=== PATIENT | male | born 1950 | race Caucasian/White ===

== ENCOUNTER 2025-02-23 | Day surgery (SDC) | payer MEDICARE, SELFPAY ==
[2025-02-09 15:01] VITALS: BMI 28.8
[2025-02-23 07:07] VITALS: BP 163/69; PULSE 92; RESP 18; TEMP 36.8; O2SAT 96; BMI 29.5
[2025-02-23] MEDS: LACTATED RINGERS 1,000 ML 150 ML IV CONT (07:25)
--- NOTE | 2025-02-23 08:02 | WPDANESEPPF ---
Anes - Initial Pre Proc Eval Procedure: Operation Date: 02/23/25 08:30 Proposed Procedures p Screening Colonoscopy - Mike Cruz MD Date/Time: 02/23/25 08:02 Surgeon: Mike Cruz MD Pre Op Diagnosis: Screening/positive cologuard Patient Data Age: 74 Gender: M Height: 1.91 m Weight: 107 kg Last Vital Signs Temp 98.2 F 02/23/25 07:07 Pulse 92 02/23/25 07:07 Resp 18 02/23/25 07:07 BP 163/69 H 02/23/25 07:07 Pulse Ox 96 02/23/25 07:07 O2 Del Method Room Air 02/23/25 07:07 Allergies Allergy/AdvReac Type Severity Reaction Status Date / Time No Known Allergies Allergy Verified 02/23/25 07:14 Home Medications ?Medication ?Instructions ?Recorded ?Confirmed ?Type duloxetine 30 mg capsule,delayed 30 mg PO DAILY #30 caps 07/18/22 02/23/25 Rx release (Cymbalta) lisinopril 40 mg tablet 40 mg PO DAILY #90 tabs 10/05/24 02/23/25 Rx metoprolol tartrate 50 mg tablet 50 mg PO TID #270 tabs 10/05/24 02/23/25 Rx amlodipine 2.5 mg tablet See Rx Instructions .Route 11/18/24 02/23/25 Rx .COMPLEX #90 tabs sildenafil 100 mg tablet (Viagra) 100 mg PO DAILY PRN sexual 12/15/24 02/09/25 Rx activity #20 tabs alprazolam 0.5 mg tablet (Xanax) 0.5 mg PO BID PRN anxiety #60 tabs 02/02/25 02/09/25 Rx atorvastatin 10 mg tablet See Rx Instructions .Route 02/02/25 02/23/25 Rx .COMPLEX #90 tabs Patient hx anesthesia problems: none Family hx anesthesia problems: none Results Review: All pre-operative results and documents have been reviewed as part of the pre-operative evaluation. [facility] Past Medical History Medical History Erectile dysfunction Hyperlipidemia Anxiety Hypertension Social History Social History Smoking packs per day: 1 Smoking cigarettes per day: 20.0 Years smoked: 10 Smoking pack-years: 10.00 Smoking status: Former smoker Smoking end date: 05/20/06 Alcohol intake: never Alcohol use details: Drinks beer socially Substance use: never Substance use type: does not use Lack of Transportation: No Lack of Food: Never True Current Housing: I Have Housing Concerned About Future Housing: No Difficulty Paying Gas/Electric Bills: No Difficulty Paying for Meds: No Currently Unemployed: No Education: High School Diploma/GED Difficulty w/ Childcare or Family Care: No Living arrangements: with family Spiritual care concerns: No Anes - Eval Final PreProcedure Day of Procedure 02/23/25 08:02 Patient weight: overweight Lungs: normal air movement Airway: Mallampati scale class II and special considerations (Upper partial, removed, many missing teeth. ) Neurological: alert and oriented Last oral intake: >/= 8 hours ASA classification: III Emergent: no Anesthetic plan: proceed Anesthesia type and monitoring: general GIVS and standard monitoring Results Review: All pre-operative results and documents have been reviewed as part of the pre-operative evaluation. 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 Informed Consent: The patient's anesthetic plan and its attendant risks and benefits were discussed with the patient/family/POA. Questions were solicited and answers provided to the satisfaction of the patient/family/POA.
--- NOTE | 2025-02-23 08:38 | P.HP_ITS ---
H&P: HPI History of Present Illness Date/Time: 02/23/25 08:38 Chief Complaint: Positive Cologuard Narrative: This is the patient's first colonoscopy. he was recently found to be Cologuard positive. There are no GI symptoms and there is no family history of colorectal cancer. Review of Systems Review of Systems: All systems reviewed & are unremarkable except as noted in HPI and below PMFSH Past Medical History Medical History Erectile dysfunction Hyperlipidemia Anxiety Hypertension Social History Social History Smoking packs per day: 1 Smoking cigarettes per day: 20.0 Years smoked: 10 Smoking pack-years: 10.00 Smoking status: Former smoker Smoking end date: 05/20/06 Alcohol intake: never Alcohol use details: Drinks beer socially Substance use: never Substance use type: does not use Lack of Transportation: No Lack of Food: Never True Current Housing: I Have Housing Concerned About Future Housing: No Difficulty Paying Gas/Electric Bills: No Difficulty Paying for Meds: No Currently Unemployed: No Education: High School Diploma/GED Difficulty w/ Childcare or Family Care: No Living arrangements: with family Spiritual care concerns: No Meds Home Medications and Allergies Home Medications ?Medication ?Instructions ?Recorded ?Confirmed ?Type duloxetine 30 mg capsule,delayed 30 mg PO DAILY #30 ca ps 07/18/22 02/23/25 Rx release (Cymbalta) lisinopril 40 mg tablet 40 mg PO DAILY #90 tabs 09/1702/23/25 Rx metoprolol tartrate 50 mg tablet 50 mg PO TID #270 tab s 10/05/24 02/23/25 Rx amlodipine 2.5 mg tablet See Rx Instructions .Route 0 11/18/24 02/23/25 Rx .COMPLEX #90 tabs sildenafil 100 mg tablet (Viagra) 100 mg PO DAILY PRN sexual 12/15/24 02/09/25 Rx activity #20 tabs alprazolam 0.5 mg tablet (Xanax) 0.5 mg PO BID PRN anx iety #60 tabs 02/02/25 02/09/25 Rx atorvastatin 10 mg tablet See Rx Instructions .Route 0 02/02/25 02/23/25 Rx .COMPLEX #90 tabs Allergies Allergy/AdvReac Type Severity Reaction Status Date / Time No Known Allergies Allergy Verified 02/23/25 07:14 Vital Signs Vital Signs - 24 hr 02/23/25 07:07 Temperature 98.2 F Pulse Rate 92 Respiratory Rate 18 Blood Pressure 163/69 H Pulse Oximetry 96 Oxygen Delivery Room Air Exam Const: General: cooperative and healthy appearing Resp: Effort & Inspection: normal respiratory effort and able to speak in complete sentences Auscultation: clear to auscultation bilaterally Cardio: Rate: regular rate Rhythm: regular rhythm GI: Inspection: normal to inspection GI Palp: No No hepatosplenomegaly present Auscultation: normal bowel sounds Rectal Exam: deferred Skin: General skin exam: normal color Psych: Appearance: grossly normal Mental Status: mental status grossly normal Assessment and Plan Assessment and plan (1) Positive colorectal cancer screening using Cologuard test: Code(s): R19.5 - Other fecal abnormalities Status: Acute Assessment and Plan: The patient is deemed a good candidate for the procedure. Consent signed. Will proceed.
[2025-02-23] MEDS: SIMETHICONE ORAL SUSPENSION 20 MG/0.3 ML 30 ML BOTTLE 0.6 ML IRRIGATION (08:59)
--- NOTE | 2025-02-23 09:05 | S_PTH ---
PATIENT: Darwin Love LOC: [facility]#:[id number] AGE/SX: 74/M ROOM: RE02/23/[address]: Mike Cruz MD : 1950 BED: DIS: 02/23/2025 SPEC #: [id number] RECD: 02/23/25 09:15 STATUS: DORIE REQ #: [id number] ROMINA: 02/23/25 09:[address]: Mike Cruz DEPT: [facility] Surgical RECD BY: Angelita Pablo ENTERED: 02/23/25 09:15 SP TYPE: Surgical OTHR DR: Jeff Limon MD Tissues: A - Colon Polypectomy Procedures: Hematoxylin and Eosin Stain Gross and Microscopic Level 4
[2025-02-23 09:08] VITALS: BP 93/55; PULSE 83; RESP 26; O2SAT 96
[2025-02-23 09:18] VITALS: BP 147/56; PULSE 63; RESP 22; O2SAT 98
[2025-02-23 09:28] VITALS: BP 149/85; PULSE 76; RESP 25; O2SAT 98
== END 2025-02-23 09:33 | disposition home or self-care (01) ==
PROVIDERS: PCP Family Medicine; Referring Provider Family Medicine; Visit Provider Internal Medicine Gastroenterology
PROC: 0DJD8ZZ Inspection of Lower Intestinal Tract, Via Natural or Artificial Opening Endoscopic (ICD-10-PCS; CPT 45378; principal; 2025-02-23 08:30)
DX: R19.5 Other fecal abnormalities (principal); D12.0 Benign neoplasm of cecum; K57.30 Diverticulosis of large intestine without perforation or abscess without bleeding; K63.89 Other specified diseases of intestine; E78.5 Hyperlipidemia, unspecified; I10 Essential (primary) hypertension; N52.9 Male erectile dysfunction, unspecified; R73.03 Prediabetes; F41.9 Anxiety disorder, unspecified; Z87.891 Personal history of nicotine dependence
CPT/HCPCS: 45385; 88305; J2003; J2704; J7120